=== PATIENT | female | born 1935 | race Hispanic/Latino ===

== ENCOUNTER → 2024-03-20 | Outpatient (CLI) | payer OTHER, MEDICARE ==
--- NOTE | 2024-03-20 12:09 | HMCIMG ---
CERV SPINE 4-5 VWS REASON: Unspecified nondisplaced fracture of first cervical vertebra, initial encou. COMPARISON: None TECHNIQUE: 6 images of cervical spine were obtained. FINDINGS: Bony osteopenia is seen. 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 Disc space narrowing is seen at C5-6 and C6-7 levels. No loss of vertebral height is seen. IMPRESSION: Findings as described above.
== END | disposition home or self-care (01) ==
LOC: RAH 10:10
PROVIDERS: ATTEND Neuromusculoskeletal Medicine & OMM
DX: M47.812 Spondylosis without myelopathy or radiculopathy, cervical region (principal); M48.02 Spinal stenosis, cervical region; M85.88 Other specified disorders of bone density and structure, other site
CPT/HCPCS: 72050